=== PATIENT | male | born 1995 | race Native Hawaiian/Other Pacific Islander ===

== ENCOUNTER 2021-09-01 20:39 | Emergency (ER) | payer OTHER ==
[~2021-09-01] VITALS: Ht 175.3 cm; Wt 81.6 kg
[2021-09-01 21:38] VITALS: BP 107/64; TEMP 98.7
== END 2021-09-01 21:38 | disposition home or self-care (01) ==
LOC: ED 20:39
PROC: 0HQGXZZ Repair Left Hand Skin, External Approach (ICD-10-PCS; principal; 2021-09-01)
DX: S61.412A Laceration without foreign body of left hand, initial encounter (principal); W26.0XXA Contact with knife, initial encounter; Y92.89 Other specified places as the place of occurrence of the external cause
CPT/HCPCS: 99282

== ENCOUNTER 2021-09-17 20:50 | Emergency (ER) | payer OTHER ==
[~2021-09-17] VITALS: Ht 175.3 cm; Wt 79.4 kg
[2021-09-17 21:15] VITALS: BP 137/75; TEMP 98.9
== END 2021-09-17 21:15 | disposition home or self-care (01) ==
LOC: ED 20:50
DX: Z48.02 Encounter for removal of sutures (principal)